=== PATIENT | female | born 1980 | race Caucasian/White ===

== ENCOUNTER 2020-01-18 11:33 | Emergency (ER) | payer BC, OTHER, SELFPAY ==
--- NOTE | ~2020-01-18 | US_ITS ---
EXAMINATION: US venous doppler LE RT DATE: 01/18/2020 12:46 INDICATION: Right lower limb pain. Palpable lump. TECHNIQUE: Grayscale ultrasound images without and with compression and Doppler ultrasound images of the right lower extremity veins were obtained. COMPARISON: None. FINDINGS: The visualized portions of right common femoral vein, profunda (deep) femoral vein, femoral vein, pop liteal vein, peroneal trunk, posterior tibial veins, peroneal veins, gastrocnemius vein and greater s aphenous vein outflow are patent. There is a 13 x 6 x 9 mm anechoic cystic fluid collection at the re gion of concern along the dorsal lateral aspect of the right foot. IMPRESSION: 1. No deep venous thrombosis in the right lower limb. 2. Couple abnormality corresponds to a 13 x 6 x 9 mm cystic fluid collection at the dorsolateral aspe ct of the right foot is likely representing a ganglion cyst. Differential would include hematoma/sero ma or abscess the appropriate clinical settings although the absence of any internal echogenicity wou ld be atypical for hematoma or abscess. Reviewed, dictated and finalized at location A. IMPRESSION: 1. No deep venous thrombosis in the right lower limb. 2. Couple abnormality corresponds to a 13 x 6 x 9 mm cystic fluid collection at the dorsolateral aspect of the right foot is likely representing a ganglion cy st. Differential would include hematoma/seroma or abscess the appropriate clini jenn settings although the absence of any internal echogenicity would be atypica l for hematoma or abscess.
--- NOTE | ~2020-01-18 | XR_ITS ---
EXAMINATION: XR foot RT min 3V DATE: 01/18/2020 12:06 INDICATION: Nontraumatic right foot pain and soft tissue swelling at the fourth and fifth metatarsals TECHNIQUE: Dorsoplantar, two oblique and lateral views of the right foot were obtained. COMPARISON: None. FINDINGS: Alignment is normal. There is subtle central linear lucency projecting across a region of sclerosis a t the proximal metadiaphyseal region of the right fifth metatarsal suspicious for stress reaction/inc omplete stress fracture. Alternatively this could represent an old healed fracture. No evident cortic al discontinuity. No other acute fractures identified. Lag screw fixation across the medial malleolus . Joint spaces are normal. Soft tissues are unremarkable. IMPRESSION: 1. Suggestion of possible stress injury/incomplete stress fracture at the proximal metadiaphyseal reg ion of the fifth metatarsal. Correlate with clinical history as a healed fracture at this location co uld appear similarly. Reviewed, dictated and finalized at location A. IMPRESSION: 1. Suggestion of possible stress injury/incomplete stress fracture at the proxi mal metadiaphyseal region of the fifth metatarsal. Correlate with clinical hist ory as a healed fracture at this location could appear similarly.
[2020-01-18 11:40] VITALS: BP 130/88; PULSE 86; RESP 18; TEMP 37.1; O2SAT 99
--- NOTE | 2020-01-18 12:09 | PC.NURSE ---
Pt states she has hx of broken R ankle bilaterally. Pt states they placed screws and plates. Pt states yesterday she was more active than normal and had pain and swelling. Pt states she elevated her R foot and the pain has decreased significantly. Pt states the lump on the R foot is not normally there. Pulses present, no reddness, or swelling noted.
--- NOTE | 2020-01-18 13:38 | ED.LOWEXIN ---
HPI - Extremity Injury (Lower) General Chief Complaint: Extremity Injury, Lower Stated Complaint: Think I have a blood clot Time Seen by Provider: 01/18/20 11:42 Source: RN notes reviewed History of Present Illness HPI Narrative: Patient presents emergency department from home for right foot pain. Patient states symptoms began 3 days ago. She notes that she noted a painful lump on her dorsal right lateral foot. She states that time her veins seem engorged as well. States since that time she is had pain in that foot she denies any pain further up the leg. Denies any known trauma or injury denies any fevers or chills numbness or tingling in extremities or any other symptoms at this time. Patient states she does have a history of previous ankle fracture in that foot with screw present Related Data Allergies Allergy/AdvReac Type Severity Reaction Status Date / Time No Known Allergies Allergy Verified 11/18/18 16:07 Review of Systems Review of Systems: Narrative: Gen.: Denies fevers or chills Musculoskeletal: See HPI Neuro: Denies numbness, tingling, weakness Skin: Denies rash Endo: Denies DM PMFSH Past Medical History Medical History (Updated 01/18/20 @ 13:39 by Pietro Felix DO) Patient denies significant medical history Family History Family History (Updated 06/17/15 @ 09:23 by DOCTOR UNKNOWN) Mother Family history of mental disorder Family history of spherocytosis Family history of lung cancer Father Depression Grandparent Diabetes mellitus Social History Social History Smoking status: Smoker, status unknown Alcohol intake: never Gender identity (if verbalized by the patient): Female Exam Narrative: Exam Narrative: APPEARANCE: No acute distress, nontoxic, resting in bed Eyes: EOMI HEENT: Normocephalic, atraumatic, RESPIRATORY: No respiratory distress MUSCULOSKELETAl: Tender to palpation at the base of the fifth metatarsal as well as mild tenderness over dorsal lateral foot with mild area of swelling present no overlying erythema or ecchymosis, no tenderness of the ankle is full range of motion of the ankle without pain no calf tenderness or proximal fibula tenderness, dorsalis pedis pulse 2+, neurovascular intact NEURO: Awake and alert. Following commands, speech normal, no focal deficits SKIN:: Warm, dry. Normal Color no rash or lesions Course Course Emergency Course: Discussed with patient results of workup and diagnosis. Discussed need for follow-up with primary care, proper use of medication, and reasons to return to the emergency department. Patient understands and agrees to current treatment plan Vital Signs Vital signs: Vital Signs Temperature 98.8 F 01/18/20 11:40 Pulse Rate 86 01/18/20 11:40 Respiratory Rate 18 01/18/20 11:40 Blood Pressure 130/88 01/18/20 11:40 Pulse Oximetry 99 01/18/20 11:40 Temperature 98.8 F 01/18/20 11:40 Pulse Rate 86 01/18/20 11:40 Respiratory Rate 18 01/18/20 11:40 Blood Pressure 130/88 01/18/20 11:40 Pulse Oximetry 99 01/18/20 11:40 MDM - Extremity Injury (Lower) Imaging Data Radiologist's impression: ITS Impressions Foot X-Ray 01/18/20 12:23 IMPRESSION: 1. Suggestion of possible stress injury/incomplete stress fracture at the proximal metadiaphyseal region of the fifth metatarsal. Correlate with clinical history as a healed fracture at this location could appear similarly. Venous Doppler Study 01/18/20 12:47 IMPRESSION: 1. No deep venous thrombosis in the right lower limb. 2. Couple abnormality corresponds to a 13 x 6 x 9 mm cystic fluid collection at the dorsolateral aspect of the right foot is likely representing a ganglion cyst. Differential would include hematoma/seroma or abscess the appropriate clinical settings although the absence of any internal echogenicity would be atypical for hematoma or abscess. Discharge Plan
== END 2020-01-18 14:02 | disposition home or self-care (01) ==
PROVIDERS: Emergency Provider Emergency Medicine
DX: S92.354A Nondisplaced fracture of fifth metatarsal bone, right foot, initial encounter for closed fracture (principal); X58.XXXA Exposure to other specified factors, initial encounter
CPT/HCPCS: 73630; 93971; 99284

== ENCOUNTER 2023-01-29 15:01 | Emergency (ER) | payer OTHER, BC, SELFPAY ==
[2023-01-29 15:02] VITALS: BP 141/86; PULSE 86; RESP 16; TEMP 36.4; O2SAT 97
--- NOTE | 2023-01-29 15:57 | ED.EAR ---
HPI - Ear Problem General Chief complaint: Ear Stated complaint: ear/head pain Time Seen by Provider: 01/29/23 15:24 Source: patient, RN notes reviewed and old records reviewed Mode of arrival: ambulatory Limitations: no limitations History of Present Illness HPI Narrative: This is a 42 year old female with history of spherocytosis s/p splenectomy who presents for evaluation right ear pain. Patient has been having right side facial pain and right ear pain for 2 weeks. She reports she cleaned out her ears with Q tip a few days ago , and she saw old dark substance on the q tip. She placed her used q tip in a plastic baggy and put away on the counter. She has noticed that those q tip are growing black substance. She is concerned for fungal ear infection. She denies nausea, vomiting, vertigo, fever, chills, blurred vision, focal weakness. She states Dr. Romero is unable to get her in for 2 weeks. Related Data Home Medications Medication Instructions Recorded Confirmed cholecalciferol (vitamin D3) 250 250 mcg PO DAILY 10/20/22 10/20/22 mcg (10,000 unit) capsule Allergies Allergy/AdvReac Type Severity Reaction Status Date / Time No Known Allergies Allergy Verified 01/29/23 15:11 Review of Systems Constitutional: Constitutional: Denies weakness Cardiovascular: Cardiovascular: Denies syncope, Denies rapid heart rate, Denies irregular heart rhythm, Denies leg edema and Denies dyspnea Respiratory: Respiratory: Denies chest congestion, Denies hemoptysis, Denies excessive phlegm production and Denies dyspnea Gastrointestinal: Gastrointestinal: Denies abdominal pain, Denies hematochezia, Denies diarrhea and Denies vomiting Genitourinary: Genitourinary: Denies hematuria and Denies dysuria Musculoskeletal: Musculoskeletal: Denies joint swelling, Denies loss of height and Denies muscle weakness Neurologic: Denies syncope, Denies focal weakness and Denies weakness PMFSH Past Medical History Medical History Depression Ganglion cyst of right foot Osteopenia Patient denies significant medical history Spherocytosis Weight gain Surgical History Surgical History History of ankle surgery Right ankle, 2002 History of splenectomy Family History Family History Mother Family history of mental disorder Family history of spherocytosis Family history of lung cancer Father Depression Grandparent Diabetes mellitus Other Arthritis Social History Social History Smoking packs per day: 1 Smoking cigarettes per day: 20.0 Years smoked: 15 Smoking pack-years: 15.00 Smoking status: Current every day smoker Tobacco type: e-cigarettes/vaping Alcohol intake: never Alcohol use details: Occasional Substance use: unknown Lack of Transportation: No Lack of Food: Never True Current Housing: I Have Housing Concerned About Future Housing: No Difficulty Paying Gas/Electric Bills: No Difficulty Paying for Meds: No Currently Unemployed: No Education: Bachelor's Degree Difficulty w/ Childcare or Family Care: No Occupation/Education: unemployed Gender identity (if verbalized by the patient): Female Exam Const: General: no acute distress and alert Nutritional Appearance: well nourished Orientation/consciousness: patient oriented x3 HENMT: Head: normal to inspection Ears: TM's normal bilaterally, Abnormal EAC present other (right canal with brown substance, no canal swelling or erythema) and other (mild right mastoid tenderness, no redness, no bogginess; no pain with ear m) Face/Nose/Sinus: Normal external nose present Face and sinus: normal facial exam and sinuses nontender Mouth: Yes Normal oral and palatal mucosa present, Yes lip normal and Yes moist mucous membranes
[2023-01-29 16:01] LABS: Basophils Absolute Auto 0.1 K/mm3 (0.0-0.1); Basophils Percent Auto 0.6 % (0.2-1.2); Eosinophils Absolute Auto 0.1 K/mm3 (0-0.3); Eosinophils Percent Auto 1.1 % (0-4.4); Hematocrit 40.4 % (37.0-47.0); Hemoglobin 14.2 g/dL (12.0-15.0); Immature Granulocyte Absolute 0.05 K/mm3 (0.00-0.031); Immature Granulocyte Percent A 0.4 % (0-0.5); Lymphocytes Absolute Auto 3.38 K/mm3 (0.9-3.2); Lymphocytes Percent Auto 27.8 % (18.3-44.2); Mean Corpuscular HGB Conc 35.1 g/dl (32-36); Mean Corpuscular Volume 88.2 fl (80-100); Mean Platelet Volume 8.6 fl (7.4-10.4); Monocytes Absolute Auto 1.1 K/mm3 (0.1-0.6); Monocytes Percent Auto 8.7 % (2.6-8.5); Neutrophils Absolute Auto 7.5 K/mm3 (1.3-6.7); Neutrophils Percent Auto 61.4 % (45.5-73.1); Platelet Count Result 594 k/mm3 (150-375); Red Blood Count 4.58 M/mm3 (4.2-5.4); White Blood Count 12.1 K/mm3 (4.5-10.0)
[2023-01-29 16:13] LABS: Alanine Aminotransferase 23 U/L (6-35); Albumin Level 4.1 g/dL (3.5-5.1); Alkaline Phosphatase 59 U/L (38-126); Anion Gap 6 mmol/L (8-16); Aspartate Amino Transferase 25 U/L (14-36); Bilirubin,Total 0.6 mg/dL (0.2-1.3); Blood Urea Nitrogen 14 mg/dL (7-17); CRP < 0.5 mg/dL (<1.0); Calcium 8.5 mg/dL (8.4-10.2); Carbon Dioxide 28 mmol/L (22-30); Chloride 105 mmol/L (98-107); Estimated CRCL calculation 114 ml/min; Estimated Glomerular Filt Rate > 60; Glucose 107 mg/dL (65-110); Potassium 3.8 mmol/L (3.4-5.0); Sodium 139 mmol/L (137-145)
[2023-01-29 16:56] VITALS: BP 132/81; PULSE 70; O2SAT 97
== END 2023-01-29 16:57 | disposition home or self-care (01) ==
PROVIDERS: Emergency Provider General Practice; PCP Nurse Practitioner
DX: H60.91 Unspecified otitis externa, right ear (principal); F17.290 Nicotine dependence, other tobacco product, uncomplicated
CPT/HCPCS: 36415; 80053; 85025; 86140; 99283

== ENCOUNTER 2023-02-10 06:35 | Outpatient (CLI) | payer OTHER, BC, SELFPAY ==
--- NOTE | ~2023-02-10 | CT_ITS ---
EXAMINATION: CT sinus wo con DATE: 02/10/2023 06:57 INDICATION: Acute recurrent maxillary sinusitis TECHNIQUE: Computed tomography (CT) of the paranasal sinuses was performed without intravenous contra st. The dose-length product was 218.94 mGy-cm. Automated exposure control and iterative reconstructio n technique were employed. COMPARISON: None FINDINGS: There is mild mucosal thickening of the left maxillary sinus. Rightward nasal septal deviat ion. Ostiomeatal units are patent. No air-fluid levels. No mucoperiosteal reaction. IMPRESSION: 1. Mild left maxillary sinus disease. Reviewed, dictated and finalized at location L.
== END 2023-02-10 06:36 | disposition home or self-care (01) ==
PROVIDERS: PCP Nurse Practitioner; Visit Provider Otolaryngology
DX: J01.01 Acute recurrent maxillary sinusitis (principal); B36.9 Superficial mycosis, unspecified; H62.41 Otitis externa in other diseases classified elsewhere, right ear
CPT/HCPCS: 70486

== ENCOUNTER 2023-11-14 10:54 | Emergency (ER) | payer OTHER, SELFPAY ==
[2023-11-14 10:56] VITALS: BP 145/66; PULSE 74; RESP 18; TEMP 36.4; O2SAT 100
--- NOTE | 2023-11-14 13:35 | ED.SKABFB ---
HPI - Skin/Abscess/Foreign Bdy General Chief complaint: Skin/Abscess/Foreign Body Stated complaint: cyst under arm Time Seen by Provider: 11/14/23 12:46 History of Present Illness HPI narrative: 43-year-old female presenting with a cyst under her left arm. States that it has been red and painful for the last 2-3 days. Concerned for infection. Denies any drainage. Denies any lesions elsewhere. No fevers or chills. No further complaints. Related Data Home Medications Medication Instructions Recorded Confirmed fluoxetine 20 mg capsule (Prozac) 20 mg PO DAILY 02/08/23 Allergies Allergy/AdvReac Type Severity Reaction Status Date / Time No Known Allergies Allergy Verified 11/14/23 12:33 Review of Systems Review of Systems: All systems reviewed & are unremarkable except as noted in HPI and below PMFSH Past Medical History Medical History Depression Ganglion cyst of right foot Osteopenia Patient denies significant medical history Spherocytosis Weight gain Surgical History Surgical History History of ankle surgery Right ankle, 2002 History of splenectomy Family History Family History Mother Family history of mental disorder Family history of spherocytosis Family history of lung cancer Father Depression Grandparent Diabetes mellitus Other Arthritis Social History Social History Smoking packs per day: 1 Smoking cigarettes per day: 20.0 Years smoked: 15 Smoking pack-years: 15.00 Smoking status: Current every day smoker Tobacco type: e-cigarettes/vaping Alcohol intake: never Alcohol use details: Occasional Substance use: unknown Lack of Transportation: No Lack of Food: Never True Current Housing: I Have Housing Concerned About Future Housing: No Difficulty Paying Gas/Electric Bills: No Difficulty Paying for Meds: No Currently Unemployed: No Education: Bachelor's Degree Difficulty w/ Childcare or Family Care: No Occupation/Education: unemployed Gender identity (if verbalized by the patient): Female Exam Narrative: GENERAL: Nontoxic, no acute distress, pleasant cooperative HEAD: Normocephalic, atraumatic. EYES: PERRLA and EOMI. ENT: Grossly unremarkable NECK: Supple. CHEST: No respiratory distress. EXTREMITIES: Normal range of motion. No edema. SKIN: 2x2cm abscess L axilla with surrounding cellulitis NEURO: No focal deficits. Alert and oriented x3. PSYCH: Normal mood and affect. Course Vital Signs Vital signs: Vital Signs Temperature 97.6 F 11/14/23 10:56 Pulse Rate 74 11/14/23 10:56 Respiratory Rate 18 11/14/23 10:56 Blood Pressure 145/66 H 11/14/23 10:56 Pulse Oximetry 100 11/14/23 10:56 Temperature 98.4 F 11/14/23 14:35 Pulse Rate 70 11/14/23 14:35 Respiratory Rate 20 11/14/23 14:35 Blood Pressure 140/74 11/14/23 14:35 Pulse Oximetry 100 11/14/23 14:35 Procedures Abscess I/D upper extremity: Date of Incision: 11/14/23 Time of Incision: 14:19 Side (if applicable): left Local Anesthetic: lidocaine 1% and with epi Technique: incised with #11 blade Amount of fluid expressed (mL): 5 Irrigation: Yes Packing used?: none I&D Results: Pus and Blood MDM - Skin/Abscess/Foreign Bdy MDM Narrative Medical decision making narrative: 43-year-old female presenting with an abscess in her left axilla. Vitals stable. Exam remarkable for the above. Abscess drained at bedside, please see procedure note for further detail. Will start her on Bactrim and Keflex for the surrounding cellulitis. Advised close PCP follow-up. Appropriate return precautions given. Patient is agreeable with this plan. Discharged in
[2023-11-14] MEDS: KETOROLAC 30 MG/ML VIAL (*BKC) IM (13:47)
[2023-11-14] MEDS: LIDO 1%/EPINEPHRINE 1:100,000 20 ML VIAL 10 ML INFILTRATE (13:47)
[2023-11-14 14:35] VITALS: BP 140/74; PULSE 70; RESP 20; TEMP 36.9; O2SAT 100
== END 2023-11-14 14:36 | disposition home or self-care (01) ==
PROVIDERS: Emergency Provider Emergency Medicine; PCP Nurse Practitioner
DX: L02.412 Cutaneous abscess of left axilla (principal); L03.112 Cellulitis of left axilla; F32.A Depression, unspecified; M85.80 Other specified disorders of bone density and structure, unspecified site; F17.210 Nicotine dependence, cigarettes, uncomplicated; Z90.81 Acquired absence of spleen
CPT/HCPCS: 10060; 96372; 99283; J1885

== ENCOUNTER 2024-12-20 08:52 | Emergency (ER) | payer BC, SELFPAY ==
[2024-12-20 09:02] VITALS: BP 117/62; PULSE 74; RESP 20; TEMP 37.1; O2SAT 99
--- OUTSIDE RECORDS SUMMARY | 2024-12-20 09:23 | XMS_ITS | Encounter Summary ---
Author Organization [facility] Address [address] [place] [address] Care Team Providers Care Vocational Placement Specialist Name Role Phone Celestina Duncan APRN-POLICE RESERVES COMMANDER Primary Care Provider Unknown, Provider Primary Care Provider Unavaila ble Reason for Visit * Reason Onset Date Comments Imm Inj 05/10/2019 Encounter Details Date Type Department Care Team (Late st Contact Info) Description 05/10/2019 Telephone [facility] [address] [facility] [address] [place] [address] Celestina Duncan, AIRCRAFT MAINTENANCE SUPERVISOR-POLICE RESERVES COMMANDER [address] OF [facility] [place] [address] Imm Inj Social History Tobacco Use Types Packs/Day Years Used Date Smoking Tobacco: Every Day Cigarettes 1 27.3 Started: 1997 Smokeless Tobacco: Never Comments:smokes 5-6 cigarett es a day Alcohol Use Standard Drinks/Week Comments No 0 (1 standard drink = 0.6 oz pur e alcohol) Comments No Sex and Gender Information Value Date Recorded Sex Assigned at Not on file Legal Sex Female 3:26 PM CDT Gender Identity Not on file Sexual Orientation Not on file documented as of this encounter Miscellaneous Notes * Telephone Encounter - Breonna Washington MD - 05/11/2019 8:52 AM CDT OK to schedule nurse only for TdaP * Telephone Encounter - Selina Lagos RN - 05/10/2019 3:37 PM CDT Patient needs order for tdap documented in this encounter Plan of Treatment Not on file documented as of this encounter Visit Diagnoses Not on filedocumented in this encounter Care Teams Vocational Placement Specialist Relationship Specialty Start Date End Date Celestina Duncan, AIRCRAFT MAINTENANCE SUPERVISOR-POLICE RESERVES COMMANDER [address] [place] [address] PCP - General 05/16/18 06/14/24 Unknown, Provider PCP - General 06/15/24 documented as of this encounter
--- OUTSIDE RECORDS SUMMARY | 2024-12-20 09:23 | XMS_ITS | Encounter Summary ---
Author Organization [facility] Address [address] [place] [address] Care Team Providers Care Manager Of Project Management Name Role Phone Celestina Duncan APRN-PHARMACY MESSENGER Primary Care Provider Unknown, Provider Primary Care Provider Unavaila ble Reason for Visit * Reason Onset Date Comments MEDICATION REFILL 05/09/2019 Encounter Details Date Type Department Care Team (Late st Contact Info) Description 05/09/2019 Refill [facility] - [facility] [address] [facility] [place], [place] [id number] eLnnie Mcfarlane MD [address] [place] [id number] MEDICATION REFILL Social History Tobacco Use Types Packs/Day Years [...] encounter Miscellaneous Notes * Telephone Encounter - Janet Weston - 05/10/2019 9:03 AM CDT Patient requesting refills for the following ( Tramadol 50 mg ) medications. DANIEL:11-09-18 NOV: not scheduled at this time RTC In 8 months Problem List Identified: office visit on 11-09-18 chronic back pain Medication attached per refill protocol/guidlines for further review by provider yes PCP / Resident PCP verified yes Allergies Reviewed yes Pharmacy Reviewed yes Medication details entered yes Office visit within the last six months yes if not within last 6 months route to GIM-scheduling as well. Office visit greater than 12 months no routed to GIM scheduling ONLY no. ROUTED to scheduling to assist with scheduling follow-up per [facility] RTC in 8 months documented in this encounter Plan of Treatment Not on file documented as of this encounter Visit Diagnoses Diagnosis Chronic bilateral thoracic back pain Chronic bilateral low back pain, with sciatica presence unspecified documented in this encounter Care Teams Manager Of Project Management Relationship Specialty Start Date End Date Celestina Duncan, HOP FARM WORKER-PHARMACY MESSENGER [address] [place] [address] PCP - General 05/16/18 06/14/24 Unknown, Provider PCP - General 06/15/24 documented as of this encounter
--- OUTSIDE RECORDS SUMMARY | 2024-12-20 09:23 | XMS_ITS | Encounter Summary ---
Author Organization [facility] Address [address] [place] [address] Care Team Providers Care Cafe Worker Name Role Phone Celestina Duncan Primary Care Provider Unknown, Provider Primary Care Provider Unavaila ble Reason for Visit * Reason Onset Date Comments General 08/02/2018 Encounter Details Date Type Department Care Team (Late st Contact Info) Description 08/02/2018 Telephone [facility] [address] [facility] [address] [place] [address] Celestina Duncan APRN-CNP [address] OF [facility] [place] [address] General Social History Tobacco Use Types Packs/Day Years Used Date Smoking Tobacco: Every Day Cigarettes 1 27.3 Started: 1997 Smokeless Tobacco: Current Comments:vaping Alcohol Use Standard Drinks/Week Comments No 0 (1 standard drink = 0.6 oz pur e alcohol) Comments No Sex and Gender Information Value Date Recorded Sex Assigned at Not on file Legal Sex Female 3:26 PM CDT Gender Identity Not on file Sexual Orientation Not on file documented as of this encounter Miscellaneous Notes * Telephone Encounter - Celestina Cuellar APRN-CNP - 08/02/2018 11:34 AM PROGRAMS MANAGER Please fax labs from 07/31/2018 and call patient. Thank you, ESSENCE Sánchez RAMS MANAGER * Telephone Encounter - Su Caraballo - 08/02/2018 8:30 AM CST PT:MITA HOLT Contact #: [phone] Pt called and stated she needs Orders sent over to [facility] blood work [address] [place] [id number] Please call pt at the number above once the orders are sent over. DANIEL;07/31/18 NOV:01/29/19 RAMS MANAGER documented in this encounter Plan of Treatment Not on file documented as of this encounter Visit Diagnoses Not on filedocumented in this encounter Care Teams Cafe Worker Relationship Specialty Start Date End Date Celestina Duncan APRN-CNP [address] [place] [address] PCP - General 05/16/18 06/14/24 Unknown, Provider PCP - General 06/15/24 documented as of this encounter
--- OUTSIDE RECORDS SUMMARY | 2024-12-20 09:23 | XMS_ITS | CONTINUITY OF CARE DOCUMENT ---
Author Name camille obrien Address Unknown Organization [facility] Address [id number] [place] [address] [address] [place] [address] Phone [phone] Care Team Providers Care Home Connect Lpn Name Role Phone mireyacamille chou Unavailable Unavailable INSURANCE PROVIDERS Payer name Policy type / Coverage type Secor red republican ID [employer] [id number]
--- OUTSIDE RECORDS SUMMARY | 2024-12-20 09:23 | XMS_ITS | Continuity of Care Document ---
Author Organization [facility] Address [address] [place] [address] [place] [address] [place] [address] Phone Care Team Providers Care Professor Of Communication And Writing Name Role Phone Dudley Yeung MD Unavailable Unavailable Allergies, Adverse Reactions, Alerts Substance Reaction Status Criticality No Known Allergies Active No Inform ation Medications Medication Instructions Dosage Effective Dates (start - stop) Status Comments Ultram 50 mg tablet take 1 tablet by oral route every 6 hours as needed as needed - Active PRN for pain, avoid driving or operate machines, cyclobenzaprine 5 mg tablet take 1 tablet by oral route every bedtime as needed 5 MG - Active PRN for pain, avoid driving or operate machines Procedures Procedure Date PREV VISIT, EST, AGE 18-39 OFFICE/OUTPATIENT VISIT, EST OFFICE/OUTPATIENT VISIT, EST OFFICE/OUTPATIENT VISIT, EST OFFICE/OUTPATIENT VISIT, EST OFFICE/OUTPATIENT VISIT, EST OFFICE/OUTPATIENT VISIT, EST OFFICE/OUTPATIENT VISIT, EST OFFICE/OUTPATIENT VISIT, EST OFFICE/OUTPATIENT VISIT, EST OFFICE/OUTPATIENT VISIT, EST OFFICE/OUTPATIENT VISIT, EST PREV VISIT, EST, AGE 18-39 OFFICE/OUTPATIENT VISIT, EST OFFICE/OUTPATIENT VISIT, EST OFFICE/OUTPATIENT VISIT, EST OFFICE/OUTPATIENT VISIT, EST PREV VISIT, EST, AGE 18-39 OFFICE/OUTPATIENT VISIT, EST Advance Directives Directive Yes / No Effective Date File Name No Information Encounters Encounter Description Practice Location Reason(s) For Visit Diagnoses Date Provider Providers Copied on Encounter [facility], [address], [place], [place], [address], tel:[phone] [facility] No Information 8 Gamal Buckner. [address], [place], [place], [address] , [place]. tel:[phone] Referring Provider: Chuck David [address], [place], [place], [address]. tel:[phone] PREV VISIT, EST, AGE 18-39 [facility], [address], [place], [place], [address], [place] tel:[phone] [facility] PHysical (chief complaint) Encounter for general adult medical exam w abnormal findingsHyperlipid emiaLiver diseaseChronic pain syndrome 8 Gamal Buckner. [address], [place], [place], [address] , [place]. tel:[phone] Referring Provider: Chuck [address], [place], [place], [address]. tel:[phone] OFFICE/OUTPA TIENT VISIT, [facility], [address], [place], [place], [address], [place] tel:[phone] [facility] back pain1 (chief complaint)t obacco1 (chief complaint)e ar pain1 (chief complaint)L iver disease1 (chief complaint) Other hyperlipidemiaOtal david, right earLiver diseaseOther spondylosis, cervicothoracic region 5 Gamal Buckner. [address], [place], [place], [address] , [place]. tel:[phone] Referring Provider: Chuck [address], [place], [place], [address]. tel:[phone] OFFICE/OUTPA TIENT VISIT, [facility], [address], [place], [place], [address], [place] tel:[phone] [facility] back pain (chief complaint)H TN (chief complaint)t obacco (chief complaint) Dietary surveillance and counselingBack painOpioid type dependence, unspecified useUnspecified essential hypertensionTobacc o abuse 5 Gamal Buckner. [address], [place], [place], [address] , [place]. tel:[phone] Referring Provider: Dudley Yeung, [address], [place], [place], [address]. tel:[phone] OFFICE/OUTPA TIENT VISIT, [facility], [address], [place], [place], [address], [place] tel:[phone] [facility] back pain (chief complaint) Dietary surveillance and counselingBack painUnspecified essential hypertensionUnspec ified chronic liver disease without mention of alcohol 5 Gamal Buckner. [address], [place], [place], [address] , [place]. tel:[phone] Referring Provider: Chuck David [address], [place], [place], [address]. tel:[phone] OFFICE/OUTPA TIENT VISIT, [facility], [address], [place], [place], [address], [place] tel:[phone] [facility] URI (chief complaint)b ack pain (chief complaint) Dietary surveillance and counselingAllergic rhinitisUpper respiratory diseaseLumbago 5 Gamal Buckner. [address], [place], [place], [address] , [place]. tel:[phone] Referring Provider: Chuck David [address], [place], [place], [address]. tel:[phone] OFFICE/OUTPA TIENT VISIT, [facility], [address], [place], [place], [address], [place] tel:[phone] [facility] LFT (chief complaint)H LP (chief complaint)b ack pain (chief complaint)H TN (chief complaint) Dietary surveillance and counselingHyperten geronimo, UnspecifiedOther and unspecified hyperlipidemiaUnsp ecified chronic liver disease without mention of alcoholLumbago Nov- 5 Gamal Mckeon [address], [place], [place], [address] , . tel:[phone] Referring Provider: [facility] [place], [place], [address]. tel:[phone] OFFICE/OUTPA TIENT VISIT, [facility], [address], [place], [place], [address], [place] tel:[phone] [facility] back pain (chief complaint)d epression (chief complaint) LumbagoDietary surveillance and counselingDepressi onOpioid type dependence, unspecified use 5 Gamal Mckeon [address], [place], [place], [address] , [place]. tel:[phone] Referring Provider: Chuck David [address], [place], [place], [address]. tel:[phone] OFFICE/OUTPA TIENT VISIT, [facility], [address] [place], [address], [place] tel:[phone] [facility] depression (chief complaint)b ack pain (chief complaint)L FT (chief complaint) DepressionLumbagoU nspecified chronic liver disease without mention of alcoholDietary surveillance and counseling 4 Gamal Mckeon [address], [place], [place], [address] , [place]. tel:[phone] Referring Provider: Chuck David [address], [place], [place], [address]. tel:[phone] OFFICE/OUTPA TIENT VISIT, [facility], [address], [place], [place], [address], [place] tel:[phone] [facility] HLP (chief complaint)L FT (chief complaint)b ack pain (chief complaint)d epression (chief complaint) ObesityOther and unspecified hyperlipidemiaUnsp ecified chronic liver disease without mention of alcoholLumbago 4 Gamal Buckner. [address], [place], [place], [address] , [place]. tel:[phone] Referring Provider: Chuck David [address], [place], [place], [address]. tel:[phone] OFFICE/OUTPA TIENT VISIT, EST [facility], [address], [place], [place], [address], [place] tel:[phone] [facility] Medicine LFT (chief complaint)H LP (chief complaint)b ack pain (chief complaint)a drenal nodule (chief complaint) Other and unspecified hyperlipidemiaUnsp ecified chronic liver disease without mention of alcoholObesityLumb ago 4 Gamal Mckeon [address], [place], [place], [address] , [place]. tel:[phone] Referring Provider: Chuck David [address], [place], [place], [address]. tel:[phone] OFFICE/OUTPA TIENT VISIT, EST [facility], [address], [place], [place], [address], [place] tel:[phone] [facility] adrenal nodule (chief complaint)a cne (chief complaint)b ack pain (chief complaint) Dietary surveillance and counselingOther specified disorders of adrenal glandsLumbagoOther acne 4 Gamal Mckeon [address], [place], [place], [address] , [place]. tel:[phone] Referring Provider: Chuck David [address], [place], [place], [address]. tel:[phone] PREV VISIT, EST, AGE 18-39 [facility], [address], [place], [place], [address], [place] tel:[phone] [facility] Medicine Physical (chief complaint) Dietary surveillance and counselingRoutine Medical ExamRoutine Medical Exam 4 Yeung Dudley. [address], [place], [place], [address] , [place]. tel:[phone] Referring Provider: Chuck David [address], [place], [place], [address]. tel:[phone] OFFICE/OUTPA TIENT VISIT, [facility], [address], [place], [place], [address], [place] tel:[phone] [facility] back pain (chief complaint)a dernal mass (chief complaint) LumbagoOther specified disorders of adrenal glands 4 Gamal Buckner. [address], [place], [place], [address] , [place]. tel:[phone] Referring Provider: Chuck David [address], [place], [place], [address]. tel:[phone] OFFICE/OUTPA TIENT VISIT, [facility], [address], [place], [place], [address], [place] tel:[phone] [facility] back pain (chief complaint) LumbagoDietary surveillance and counseling 3 Gamal Buckner. [address], [place], [place], [address] , [place]. tel:[phone] Referring Provider: Chuck David [address], [place], [place], [address]. tel:[phone] OFFICE/OUTPA TIENT VISIT, [facility], [address], [place], [place], [address], [place] tel:[phone] [facility] back pain (chief complaint)a drenal (chief complaint) Dietary surveillance and counselingLumbagoH ypertension, UnspecifiedOther specified disorders of adrenal glands 3 Gamal Buckner. [address], [place], [place], [address] , [place]. tel:[phone] Referring Provider: Chuck David [address], [place], [place], [address]. tel:[phone] OFFICE/OUTPA TIENT VISIT, EST [facility], [address], [place], [place], [address], [place] tel:[phone] [facility] Medicine back pain (chief complaint)H TN (chief complaint)H LP (chief complaint) Dietary surveillance and counselingLumbagoH ypertension, UnspecifiedOther and unspecified hyperlipidemia 3 Gamal Buckner. [address], [place], [place], [address] , [place]. [phone] Referring Provider: [facility] [place], [place], [address]. tel:[phone] PREV VISIT, EST, AGE 18-39 [facility], [address], [place], [place], [address], [place] tel:[phone] [facility] Physical (chief complaint) Routine Medical ExamHypertension, UnspecifiedLumbago Major depressive affective disorder, single episode, mild degreeRoutine Medical Exam 0 3 Gamal Buckner. [address], [place], [place], [address] , [place]. [phone] Referring Provider: Chuck David [email or web address]] A, [place], [place], [address]. tel:[phone] Family History Family Member Type Diagnosis Age At Onset Father Problem (finding) Alcoholism Sister Problem (finding) MVA Mother Problem (finding) Cancer - lung [place] Payers Payer name Insurance type Covered green party ID Authoriza tion(s) No Information Social History Type Description Quantity Date Captured Comments Alcohol Use Details Unknown Caffeine Use Details Unknown Tobacco Use Status Smoking Status No Information Sex Female Chief Complaint And Reason For Visit No Information Plan Of Treatment Date Type Action Status Goal Depression screening. Due on due Goal Td vaccine. Due on 20 due Goal Influenza vaccine. Due on Oc due Goal Pap/HPV testing. Due on due Goal Tdap. Due on due Goal Influenza vaccine. Due on Oc due Goal Td vaccine. Due on 20 due Goal Depression screening. Due on due Goal Tdap. Due on due Goal Pap/HPV testing. Due on due Goal Special diet education compl eted Goal Depression screening. Due on due Goal Td vaccine. Due on 15 due Goal Pap/HPV testing. Due on due Goal Tdap. Due on due Goal Depression screening. Due on due Goal Td vaccine. Due on 15 due Goal Tdap. Due on due Goal Pap/HPV testing. Due on due Goal Tdap. Due on due Goal Pap/HPV testing. Due on due Goal Td vaccine. Due on 15 due Goal Depression screening. Due on due Goal Depression screening. Due on due Goal Pap/HPV testing. Due on due Goal Td vaccine. Due on 15 due Goal Tdap. Due on due Goal Special diet education compl eted Goal Tobacco cessation counseling completed Goal Tobacco cessation counseling completed Goal Tobacco cessation counseling completed Goal Tobacco cessation counseling completed Goal Tobacco cessation counseling completed Goal Tobacco cessation counseling completed Goal Tobacco cessation counseling completed Referral Ordered: Physical Therapy (related to Chronic pain syndrome) ordered Referral Ordered: Pain Medicine (related to Chronic pain syndrome) ordered Referral Ordered: Referrals: Pain Medicine. Evaluate and treat ordered Referral Referred To: Physical Therapy Ordered: Referrals: Physical Therapy. Evaluate and treat ordered Referral Ordered: MRI THORACIC SPINE W/O DYE ordered Referral Ordered: US EXAM, ABDOM, COMPLETE ordered Referral Ordered: Referral: Dermatology. Evaluate and treat. ordered Referral Ordered: Referral: Pain Management. ordered Referral Ordered: MRI ABDOMEN W/O & W/DYE ordered Referral Ordered: Physical Therapy ordered Referral Ordered: LUMBAR XRAY AP AND LAT ONLY ordered Referral Referred To: Physical Therapy Ordered: Referral: Physical Therapy. ordered History Of Present Illness Encounter Date Complaint History Of Prese nt Illness PHysical Pt needs annual physical. Pt has chronic and intermittent mid back pain. Pt seen pain management in the past and she had radiofrequency ablation along with pain injection which did help. Pt states that she has not had any pain for two years. Pt also notices some neck pain as well with some tension type of headache for 4 weeks Pt denies any injury. Pt feels pressure around posterior neck and radiating to rest of head with headache. Pt denies any head injury. Pt denies waking up at night with headache. Pt states that she has been having 5/10 pain almost daily. Pt has sharp midback pain. Pt has pressure headache from her neck area. Pt denies any other complaints. Pt states that she has headache 4/7 days. Pt tried OTC meds but not helping Pt denies any acute headache. back pain1 Pt has chronic m idback pain. Pt states that she is seeing pain managment but she wants to change pain managment again. Pt states that the pain meds do not help and she was prescrbied exercise program but she does not want that either. Pt wants shot tobacco1 Pt smoking about one pack per day now. Pt states that she patch did not help. Pt wants higher dose of patch. Pt denies any SOB. Pt smokes about one pack per day now. Ptis out of ear pain1 Pt c/o right ear pain on and off for several months. Pt denies any hearing loss. Pt denies any sore throat. Pt c/o mild sinus congestion. Pt denies any tinnitus. Pt denies any fever Liver disease1 Pt has mild elev ated lFT and HLP. Pt has not done lab yet. Pt is on low fat and low carb diet back pain Additional infor mation: Pt has chronic midback pain. Pt states that current dose of pain meds do not help anymore. Her MRI is not approved by insurance despite she failed PT and also pain injections. HTN Pt has mild HTN in office. Pt denies any chest pain or headache tobacco Pt smokes about 10 cig per day back pain Additional infor mation: Pt has chornic midback pain. Pt had some mild bulging disc from MRI 2012. Pt is getting shot. Pt states that the shot has not helped so much. URI Additional infor mation: Pt c/o recurrent URI recently. Pt c/o coughing and frequent chest congestion, sinus symptoms, white phleam, stuffy nose on and off for several months. Pt recently was diagnosed for atypical pneumonia Pt thinks that she has mold in the house. back pain Additional infor mation: Pt has chornic midback pain. pt is getting back injection from pain management but now working. Pt c/o persisent midback pain. Instructions Date Instruction Additional Infor mation Special diet education Related t o Body mass index (BMI) 31.0-31.9, adult Increase physical activity Relat ed to Encounter for general adult medical exam w abnormal findings Quit smoking Related to Encou nter for general adult medical exam w abnormal findings Weight management Related to Enc ounter for general adult medical exam w abnormal findings Prescribed Activity and Exercise Education Related to Dietary Surveillance and Counseling Prescribed Diet Educ ation/Lifestyle Education Regarding Diet Related to Dietary Surveillance and Counseling Prescribed Activity and Exercise Education Related to Dietary Surveillance and Counseling Prescribed Diet Educ ation/Lifestyle Education Regarding Diet Related to Dietary Surveillance and Counseling Prescribed Activity and Exercise Education Related to Dietary Surveillance and Counseling Prescribed Diet Educ ation/Lifestyle Education Regarding Diet Related to Dietary Surveillance and Counseling Prescribed activity/ exercise education Related to Dietary surveillance and counseling Special diet education Related t o Dietary surveillance and counseling Decrease caloric intake Related to Dietary surveillance counseling Physical activity counseling Rel ated to Dietary surveillance counseling Physical activity counseling Rel ated to Dietary surveillance counseling Decrease caloric intake Related to Dietary surveillance counseling Physical activity counseling Rel ated to Dietary surveillance counseling Decrease caloric intake Related to Dietary surveillance counseling Decrease caloric intake Related to Obesity unspecified, BMI 30-39 Dietary counseling Related to Ob esity unspecified, BMI 30-39 Decrease caloric intake Related to Obesity unspecified, BMI 30-39 Dietary counseling Related to Ob esity unspecified, BMI 30-39 Dietary counseling Related to Di etary surveillance counseling Decrease caloric intake Related to Dietary surveillance counseling Dietary counseling Related to Di etary surveillance counseling Decrease caloric intake Related to Dietary surveillance counseling Dietary counseling Related to Di etary surveillance counseling Decrease caloric intake Related to Dietary surveillance counseling Dietary counseling Related to Di etary surveillance counseling Decrease caloric intake Related to Dietary surveillance counseling Dietary counseling Related to Di etary surveillance counseling Decrease caloric intake Related to Dietary surveillance counseling Assessments Type Assessment Date No Information
--- OUTSIDE RECORDS SUMMARY | 2024-12-20 09:23 | XMS_ITS | Clinical Summary ---
Author Organization [facility] Address [address] [place] [address] Care Team Providers Care Metal Fabricating Shop Helper Name Role Phone Unknown, Provider Primary Care Provider Unavaila ble Source Comments [facility],non-owned Affiliates and Associated Physician Practices is amultiple site organization consisting of ambulatory clinics and hospital sitesin [place], [place], [place] and [place]. This disclosure is being madepursuant to the Care Everywhere program and may not contain all information available regarding this patient. Last updated 18.[facility] Allergies No known active allergies Medications * Be aware that medications may not be up to date on this document. Alwaysverify current medications with the patient. traMADol (ULTRAM) 50 MG tabletIndication s:Chronic bilateral thoracic back pain,Chronic bilateral low back pain, with sciatica presence unspecified Take 1/2 to 1 tab Q 8 PRN pain. 30 tablet 9 Active tretinoin (RETIN-A) 0.025 % gelIndications:A cne vulgaris Apply to affected area once daily 20 g 3 9 Active Active Problems Problem Noted Date Diagnosed Date Dysmenorrhea 11/09/2018 Hair loss 08/01/2018 Healthcare maintenance 07/31/2018 Overview (11/09/2018): Women's Routine Health Maintenance - BRCA/genetic counselling: NA - Breast cancer screening: NA - Cervical cancer screenin09/12/2018 - CRC screening: NA - Tobacco use: current smoker - Lung cancer screening: NA - Diabetes screening: ordered - Obesity/physical activity/diet counseling: discussed - Fall prevention: NA - Osteoporosis screening: requested records - Hep C: NA - Chlamydia: NA - Gonorrhea: NA - HIV: NA - Lipid screening: ordered - Statin: NA - ASA: NA - Depression screening: discussed - EtOH abuse screening (4 or more drinks in one day w/n the past year): 0 - Intimate partner violence (safe at home; Hurt, Insult, Threaten, Scream): denies - Dental exam: goes regularly - Eye exam: goes regularly - Immunizations - HPV: NA - Influenza: 05/18/2018 - Prevnar: NA - Pneumovax: 05/18/2018 - TdaP/Td: requested records - Zoster: NA -Advanced Directive: discussed Class 1 obesity due to exces s calories without serious comorbidity with body mass index (BMI) of 31.0 to 31.9 in adult 05/18/2018 Acne vulgaris Overview (05/18/2018): hormonal Osteopenia Back pain Anxiety and depression Immunizations Immunization Administration Dates Next Due INFLUENZA VACCINE, QUADR. (F LUZONE; FLULAVAL; FLUARIX; AFLURIA QUADRIVALENT; 6MO+), 0.5 ML (IIV4) 05/18/2018 PNEUMOCOCCAL PPSV23 05/18/2018 Family History Medical History Relation Name Comments Other - Hematologic Daughter 1 herditar y spleen disorder Cancer - Lung Mother smoker Other - Hematologic Mother heredita ry sleep disorder Diabetes - Type 2 Paternal Grandmother Other Sister MVC Relation Name Status Comments Daughter 1 Alive Daughter 2 Alive Father Maternal Grandfather Maternal Grandmother Mother Paternal Grandfather Paternal Grandmother Alive Sister Social History Tobacco Use Types Packs/Day Years Used Date Smoking Tobacco: Every Day Cigarettes 1 27.3 Started: 1997 Smokeless Tobacco: Never Tobacco Cessation:Ready to Q uit: Yes; Counseling Given: Yes Comments:smokes 5-6 cigarettes a day Alcohol Use Standard Drinks/Week Comments No 0 (1 standard drink = 0.6 oz pur e alcohol) Comments No Sex and Gender Information Value Date Recorded Sex Assigned at Not on file Legal Sex Female 3:26 PM CDT Gender Identity Not on file Sexual Orientation Not on file Last Filed Vital Signs Vital Sign Reading Time Taken Comments Blood Pressure 124/82 11/09/2018 9:04 AM CDT Pulse 74 11/09/2018 9:04 AM CDT Temperature 36.7 C (98 F) 11/09/2018 9:04 AM CDT Respiratory Rate 16 02/15/2013 12:27 PM CDT Oxygen Saturation 100% 02/15/2013 12:27 PM CDT Inhaled Oxygen Concentration - - Weight 85.7 kg (189 lb) 11/09/2018 9:04 AM CDT Height 162.6 cm (5' 4 ) 09/12/2018 9:34 AM GOSPEL WORKER Body Mass Index 32.44 09/12/2018 9:34 AM GOSPEL WORKER Plan of Treatment Health Maintenance Due Date Last Done Comments LIPID TESTING 1982 MAMMOGRAM 1982 HIB VACCINE (1 of 1 - Risk 1 -dose series) 07/08/1983 MENINGOCOCCAL GROUPS A/C/Y/W VACCINE (1 - Risk 2-dose series) 1984 MENINGOCOCCAL (Group B) VACC INE SHARED DECISION-MAKING (1 of 5 - Increased Risk) 1992 HIV SCREENING 1997 HEPATITIS C SCREENING 04/02/2000 DTAP/TDAP/TD VACCINES (1 - Tdap) 2001 HEPATITIS B VACCINE (1 of 3 - 19+ 3-dose series) 2001 PNEUMOCOCCAL VACCINE (2 of 2 - PCV) 05/18/2019 05/18/2018 PAP with HPV 09/12/2023 09/12/2018 COVID-19 VACCINE (1 - 2023-2 5 season) 2024 DEPRESSION SCREENING 08/29/2024 INFLUENZA VACCINE (Season Ended) 2025 05/18/20 18 ZOSTER VACCINE (1 of 2) 2032 HPV VACCINE Aged Out No longer eligi ble based on patient's age to complete this topic Procedures Procedure Name Priority Date/Time Associated Diagnosis Comments HPV DETECTION HIGH RISK ANIBAL Routine 09/12/2018 11:49 AM GOSPEL WORKER Dysmenorrhea from Last 3 Months or Most Recently Relevant to Health Maintenance Results * HPV DETECTION HIGH RISK ANIBAL (09/12/2018 11:49 AM GOSPEL WORKER) High Risk Human Papilloma Result Not Detected Not Detected 09/14/2018 4:14 PM GOSPEL WORKER [facility] High Risk Human Papilloma Interp 09/14/2018 4:14 PM GOSPEL WORKER [facility] Comment:High Risk Human Edgar lloma Virus was Not Detected. Pathology/Cytolo gy MISCELLANEOUS SAMPLES / Unknown 09/12/2018 11:49 AM GOSPEL WORKER 09/13/2018 11:49 AM GOSPEL WORKER Narrative [facility] - 09/14/2018 4:14 PM GOSPEL WORKER Nucleic acid isolated from the specimen was analyzed with a nucleic acid amplification test (FDA approved Gen-Probe HPV Assay) to detect high risk human papilloma virus (Types: 16, 18, 31, 33, 35, 39, 45, 51, 52, 56, 58, 59, 66, and 68). The reference range is Not Detected . Comment: These test results should not be used as the sole basis for clinical assessment and treatment of patients. These results should always be correlated with other available data (cytology, histology, and clinical information). Boni Prado MD LAB - MICROBIOLOGY ORDERABLES Final Result [facility] [address] [phone] from Last 3 Months or Most Recently Relevant to Health Maintenance Insurance [facility] Care Teams Metal Fabricating Shop Helper Relationship Specialty Start Date End Date Unknown, Provider PCP - General 06/15/24
--- OUTSIDE RECORDS SUMMARY | 2024-12-20 09:23 | XMS_ITS | Referral Summary ---
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 Mitral valve prolapse 10/23/2013 Social History Tobacco Use Types Packs/Day Years Used Date Smoking Tobacco: Never Assessed Comments No Sex and Gender Information Value Date Recorded Sex Assigned at Not on file Legal Sex Female 7:10 PM SOLAR PHOTOVOLTAIC SYSTEMS ENGINEER Gender Identity Not on file Sexual Orientation Not on file Last Filed Vital Signs Vital Sign Reading Time Taken Comments Blood Pressure 132/78 07/03/2014 8:47 AM SOLAR PHOTOVOLTAIC SYSTEMS ENGINEER Pulse 96 05/24/2014 4:35 PM CDT Temperature - - Respiratory Rate - - Oxygen Saturation 97% 05/24/2014 4:35 PM CDT Inhaled Oxygen Concentration - - Weight 88 kg (194 lb 0.1 oz) 07/03/2014 8:47 AM SOLAR PHOTOVOLTAIC SYSTEMS ENGINEER Height 162.6 cm (5' 4 ) 05/20/2014 10:51 PM CDT Body Mass Index 33.3 05/20/2014 10:51 PM CDT Plan of Treatment Not on file Procedures Procedure Name Priority Date/Time Associated Diagnosis Comments SCREENING MAMMOGRAM BILATERAL W VIPUL Schedule Routine, Read Routine (OP Routine) 01/13/2023 8:37 AM CDT Screening mammogram, encounter for from Last 3 Months or Most Recently Relevant to Health Maintenance Results * Screening Mammogram Bilateral W Vipul (01/13/2023 8:37 AM CDT) Anatomical Region Laterality Modality Breast Bilateral Mammography 01/13/2023 9:05 AM CDT Impressions 01/13/2023 9:05 AM CDT No evidence of malignancy in either breast. FINAL ASSESSMENT: BI-RADS Category 1: Negative. RECOMMENDATION: Recommend return for annual screening mammogram in 12 months. Electronically signed by: Ayleen Mcarthur M.D. Narrative 01/13/2023 9:05 AM CDT EXAMINATION: BILATERAL SCREENING MAMMOGRAM COMPARISON: Baseline TECHNIQUE: Full-field 2D and digital breast tomosynthesis (DBT) images were obtained. CAD was utilized. BREAST PARENCHYMAL COMPOSITION: There are scattered areas of fibroglandular density. FINDINGS: There is no suspicious mass, calcification, or distortion in either breast. us Self Screening Mammogram IMG MAMMO PROCEDURES Fi nal Result from Last 3 Months or Most Recently Relevant to Health Maintenance Insurance .[address] [place] [address] Care Teams Supervisor Continuous Weld Pipe Mill Relationship Specialty Start Date End Date Jason Bay NP [address] [place] [address] PCP - General Pain Management 01/05/23
--- OUTSIDE RECORDS SUMMARY | 2024-12-20 09:23 | XMS_ITS | Clinical Summary ---
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 Mitral valve prolapse 10/23/2013 Surgical History Surgery Date Site/Laterality Comments [place] SPLENECTOMY TOTAL SEPARAT E PROCEDURE Splenectomy - (Added by TW Conv) ANKLE SURGERY Ankle Surgery - (Added by TW Conv) Medical History Medical History Date Comments Hereditary spherocytosis Spheroc ytosis - (Added by TW Conv) Personal history of other me ntal and behavioral disorders History of depression - (Add ed by TW Conv) Other specified re lated conditions, unspecified trimester Vaginal discharge in - (Added by TW Conv) Personal history of other sp ecified conditions History of nausea and vomiti ng - (Added by TW Conv) Personal history of other di seases of the respiratory system Personal history of asthma - (Added by TW Conv) Smoking Quit in 2020 Family History Medical History Relation Name Comments Lung cancer Mother Family history of lung cancer - (Added by TW Conv) Breast cancer Neg Hx Endometrial cancer Neg Hx Ovarian cancer Neg Hx Thyroid cancer Neg Hx Relation Name Status Comments Mother Social History Tobacco Use Types Packs/Day Years Used Date Smoking Tobacco: Never Assessed Comments No Sex and Gender Information Value Date Recorded Sex Assigned at Not on file Legal Sex Female 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 Gender Identity Not on file Sexual Orientation Not on file Obstetrics History Para Term AB IAB SAB Ectopic Multiple Livin g Live Births 2 2 2 Date Outcome GA Total Labor Labor/2nd/3rd Weight Sex Type Anes PTL Arlen A1 A5 Name Clin Term Term Last Filed Vital Signs Vital Sign Reading Time Taken Comments Blood Pressure 132/78 07/03/2014 8:47 AM MALLET AND DIE CUTTER Pulse 96 05/24/2014 4:35 PM CDT Temperature - - Respiratory Rate - - Oxygen Saturation 97% 05/24/2014 4:35 PM CDT Inhaled Oxygen Concentration - - Weight 88 kg (194 lb 0.1 oz) 07/03/2014 8:47 AM MALLET AND DIE CUTTER Height 162.6 cm (5' 4 ) 05/20/2014 10:51 PM CDT Body Mass Index 33.3 05/20/2014 10:51 PM CDT Plan of Treatment Health Maintenance Due Date Last Done Comments Cervical Cancer Screening 1982 Depression Screening 1982 Hepatitis C Screening 1982 Varicella Vaccines (1 of 2 - 13+ 2-dose series) 1995 Hepatitis B Screening 2000 Regular Well Visit/Exam 18-64 2000 Breast Cancer Screening-Mammogram 01/14/2024 023 DTaP/Tdap/Td Vaccine (2 - Td or Tdap) 05/23/2024 05/23/2014 Influenza Vaccine (Season Ended) 2025 05/18/20 18 Pneumococcal vaccine <65 Aged Out 05/18/2018 No longer eligible based on patient's age to complete this topic HPV Vaccines Aged Out No longer eligi ble based [...] mammogram in 12 months. Electronically signed by: Araseli Merritt 01/13/2023 9:05 AM CDT EXAMINATION: BILATERAL SCREENING [...] Most Recently Relevant to Health Maintenance Insurance Care Teams Exchange Consultant Relationship Specialty Start Date End Date Jason Bay NP [address] [place], [place] [id number] PCP - General Pain Management 01/05/23
[2024-12-20 09:24] LABS: EDUAAPPEAR Clear; EDUABILI Negative (Negative); EDUABLOOD Negative (Negative); EDUACOLOR1 Dark; EDUAGLUCOSE Negative (Negative); EDUAKETONE Negative (Negative); EDUALEUKO Negative (Negative); EDUANITRATE Negative (Negative); EDUAPROTEIN Negative (Negative); EDUASPGRAVITY 1.015; EDUAUROBILI 0.2
--- OUTSIDE RECORDS SUMMARY | 2024-12-20 09:31 | XMS_ITS | Continuity of Care Document ---
Author Organization [facility] Address [address] [place] [address] [place] [address] Phone Care Team Providers Care Food Service Utility Worker Name Role Phone Dudley Yeung MD Unavailable [...] Diagnoses Date Provider Providers Copied on Encounter [facility], [address], [place], [place], [address], tel:[phone] [facility] No Information 8 Gamal Buckner. [address], [place], [place], [address] , [place]. tel:[phone] Referring Provider: Chuck David [address], [place], [place], [address]. tel:[phone] PREV VISIT, EST, AGE 18-39 [facility], [address], [place], [place], [address], [place] tel:[phone] [facility] PHysical (chief complaint) Encounter for general adult medical exam w abnormal findingsHyperlipid emiaLiver diseaseChronic pain syndrome 8 Gamal Buckner. [address], [place], [place], [address] , [place]. tel:[phone] Referring Provider: Chuck David [address], [place], [place], [address]. tel:[phone] OFFICE/OUTPA TIENT VISIT, [facility], [address], [place], [place], [address], [place] tel:[phone] [facility] back pain1 (chief complaint)t obacco1 (chief complaint)e ar pain1 (chief complaint)L iver disease1 (chief complaint) Other hyperlipidemiaOtal david, right earLiver diseaseOther spondylosis, cervicothoracic region 5 Gamal Buckner. [address], [place], [place], [address] , [place]. tel:[phone] Referring Provider: Chuck David [address], [place], [place], [address]. tel:[phone] OFFICE/OUTPA TIENT VISIT, [facility], [address], [place], [place], [address], [place] tel:[phone] [facility] back pain (chief complaint)H TN (chief complaint)t obacco (chief complaint) Dietary surveillance and counselingBack painOpioid type dependence, unspecified useUnspecified essential hypertensionTobacc o abuse 5 Gamal Buckner. [address], [place], [place], [address] , [place]. tel:[phone] Referring Provider: Dudley Yeung, [address], [place], [place], [address]. tel:[phone] OFFICE/OUTPA TIENT VISIT, [facility], [address], [place], [place], [address], [place] tel:[phone] [facility] back pain (chief complaint) Dietary surveillance and counselingBack painUnspecified essential hypertensionUnspec ified chronic liver disease without mention of alcohol 5 Gamal Buckner. [address], [place], [place], [address] , [place]. tel:[phone] Referring Provider: Chuck David [address], [place], [place], [address]. tel:[phone] OFFICE/OUTPA TIENT VISIT, [facility], [address], [place], [place], [address], [place] tel:[phone] [facility] URI (chief complaint)b ack pain (chief complaint) Dietary surveillance and counselingAllergic rhinitisUpper respiratory diseaseLumbago 5 Gamal Buckner. [address], [place], [place], [address] , [place]. tel:[phone] Referring Provider: Chuck David [address], [place], [place], [address]. tel:[phone] OFFICE/OUTPA TIENT VISIT, [facility], [address], [place], [place], [address], [place] tel:[phone] [facility] LFT (chief complaint)H LP (chief complaint)b ack pain (chief complaint)H TN (chief complaint) Dietary surveillance and counselingHyperten geronimo, UnspecifiedOther and unspecified hyperlipidemiaUnsp ecified chronic liver disease without mention of alcoholLumbago Nov- 5 Gamal Mckeon [address], [place], [place], [address] , . tel:[phone] Referring Provider: Chuck [facility] [place], [place], [address]. tel:[phone] OFFICE/OUTPA TIENT VISIT, [facility], [address], [place], [place], [address], [place] tel:[phone] [facility] back pain (chief complaint)d epression (chief complaint) LumbagoDietary surveillance and counselingDepressi onOpioid type dependence, unspecified use 5 Gamal Mckeon [address], [place], [place], [address] , [place]. tel:[phone] Referring Provider: Chuck David [address], [place], [place], [address]. tel:[phone] OFFICE/OUTPA TIENT VISIT, [facility], [address] [place], [address], [place] tel:[phone] depression (chief complaint)b ack pain (chief complaint)L FT (chief complaint) DepressionLumbagoU nspecified chronic liver disease without mention of alcoholDietary surveillance and counseling 4 Gamal Mckeon [address], [place], [place], [address] , [place]. tel:[phone] Referring Provider: Chuck David [address], [place], [place], [address]. tel:[phone] OFFICE/OUTPA TIENT VISIT, [facility], [address], [place], [place], [address], [place] tel:[phone] [facility] HLP (chief complaint)L FT (chief complaint)b ack pain (chief complaint)d epression (chief complaint) ObesityOther and unspecified hyperlipidemiaUnsp ecified chronic liver disease without mention of alcoholLumbago 4 Gamal Buckner. [address], [place], [place], [address] , [place]. tel:[phone] Referring Provider: Chuck David [address], [place], [place], [address]. tel:[phone] OFFICE/OUTPA TIENT VISIT, EST [facility], [address], [place], [place], [address], [place] tel:[phone] [facility] LFT (chief complaint)H LP (chief complaint)b ack pain (chief complaint)a drenal nodule (chief complaint) Other and unspecified hyperlipidemiaUnsp ecified chronic liver disease without mention of alcoholObesityLumb ago 4 Gamal Mckeon [address], [place], [place], [address] , [place]. tel:[phone] Referring Provider: Chuck David [address], [place], [place], [address]. tel:[phone] OFFICE/OUTPA TIENT VISIT, EST [facility], [address], [place], [place], [address], [place] tel:[phone] [facility] adrenal nodule (chief complaint)a cne (chief complaint)b ack pain (chief complaint) Dietary surveillance and counselingOther specified disorders of adrenal glandsLumbagoOther acne 4 Gamal Mckeon [address], [place], [place], [address] , [place]. tel:[phone] Referring Provider: Chuck David [address], [place], [place], [address]. tel:[phone] PREV VISIT, EST, AGE 18-39 [facility], [address], [place], [place], [address], [place] tel:[phone] [facility] Medicine Physical (chief complaint) Dietary surveillance and counselingRoutine Medical ExamRoutine Medical Exam 4 Yeung Dudley. [address], [place], [place], [address] , [place]. tel:[phone] Referring Provider: hCuck David [address], [place], [place], [address]. tel:[phone] OFFICE/OUTPA TIENT VISIT, [facility], [address], [place], [place], [address], [place] tel:[phone] [facility] back pain (chief complaint)a dernal mass (chief complaint) LumbagoOther specified disorders of adrenal glands 4 Gamal Buckner. [address], [place], [place], [address] , [place]. tel:[phone] Referring Provider: Chuck David [address], [place], [place], [address]. tel:[phone] OFFICE/OUTPA TIENT VISIT, [facility], [address], [place], [place], [address], [place] tel:[phone] back pain (chief complaint) LumbagoDietary surveillance and counseling 3 Gamal Buckner. [address], [place], [place], [address] , [place]. tel:[phone] Referring Provider: Chuck David [address], [place], [place], [address]. tel:[phone] OFFICE/OUTPA TIENT VISIT, [facility], [address], [place], [place], [address], [place] tel:[phone] [facility] back pain (chief complaint)a drenal (chief complaint) Dietary surveillance and counselingLumbagoH ypertension, UnspecifiedOther specified disorders of adrenal glands 3 Gamal Buckner. [address], [place], [place], [address] , [place]. tel:[phone] Referring Provider: Chuck David [address], [place], [place], [address]. tel:[phone] OFFICE/OUTPA TIENT VISIT, EST [facility], [address], [place], [place], [address], [place] tel:[phone] [facility] Medicine back pain (chief complaint)H TN (chief complaint)H LP (chief complaint) Dietary surveillance and counselingLumbagoH ypertension, UnspecifiedOther and unspecified hyperlipidemia 3 Gamal Buckner. [address], [place], [place], [address] , [place]. [phone] Referring Provider: Chuck [facility], [place], [place], [address]. tel:[phone] PREV VISIT, EST, AGE 18-39 [facility], [address], [place], [place], [address], [place] tel:[phone] Physical (chief complaint) Routine Medical ExamHypertension, UnspecifiedLumbago Major depressive affective disorder, single episode, mild degreeRoutine Medical Exam 0 3 Gamal Buckner. [address], [place], [place], [address] , [place]. [phone] Referring Provider: Chuck David [facility] A, [place], [place], [address]. tel:[phone] Family History Family Member Type Diagnosis Age At Onset Father Problem (finding) Alcoholism Sister Problem (finding) MVA Mother Problem (finding) Cancer - lung [place] Payers Payer name Insurance type Covered libertarian ID Authoriza tion(s) No Information Social History [...] Related t o Dietary surveillance and counseling Physical activity counseling Rel ated to Dietary surveillance counseling Decrease caloric intake Related to Dietary surveillance counseling Physical activity counseling Rel ated to Dietary surveillance counseling Decrease caloric intake Related to Dietary surveillance counseling Physical activity counseling Rel ated to Dietary surveillance counseling Decrease caloric intake Related to Dietary surveillance counseling Dietary counseling Related to Ob esity unspecified, [...]
--- OUTSIDE RECORDS SUMMARY | 2024-12-20 09:31 | XMS_ITS | CONTINUITY OF CARE DOCUMENT ---
Author Name camille obrien Address Unknown Organization [facility] Address [address] [place] [address] [address] [place] [address] Phone [phone] Care Team Providers Care Commis Chef Name Role Phone mireyacamille chou Unavailable Unavailable INSURANCE PROVIDERS Payer name Policy type / Coverage type [place] red constitution party ID [id number] insurance [email or web address] [id number]
--- OUTSIDE RECORDS SUMMARY | 2024-12-20 09:31 | XMS_ITS | Clinical Summary ---
Author Organization [facility] Address [address] [address] Phone Care Team Providers Care Electronic Musical Instrument Repairer Name Role Phone Unavailable Primary Care Provider Unavailabl e Encounters Date Type Department Care Team Description 12/18/2024 Telephone [facility] [address] [place] [address] Ifrah Solorzano, UTILITY TECH, RN COMMUNITY from Last 3 Months Social History Tobacco Use Types Packs/Day Years Used Date Smoking Tobacco: Never Assessed Comments Unknown Sex and Gender Information Value Date Recorded Sex Assigned at Not on file Legal Sex Female 2:55 PM CDT Gender Identity Not on file Sexual Orientation Not on file Plan of Treatment Upcoming Encounters Date Type Department Care Team (Late st Contact Info) Description 01/04/2025 3:30 PM CDT Office Visit [facility] [address] [place] [address] Ifrah Solorzano APRN, RN COMMUNITY [address] [place] [address] Health Maintenance Due Date Last Done Comments Hepatitis C Virus (HCV) Screening 1982 Mammogram 1982 TdaP Immunization 1982 Hepatitis B Immunization (1 of 3 - 19+ 3-dose series) 2001 Pap Smear 2003 Cervical Cancer Screening (CCS) 2012 HPV/Cotest 2012 Discussion re Starting/Frequ ency of Mammograms 2022 SARS-COV-2 Immunization (1 - 2024- season) 2024 Influenza Immunization (Seas on Ended) 2025 Respiratory Syncytial Virus (RSV) Immunization (Adult) (1 - 1-dose 75+ series) 2057 Meningococcal Immunization (ACWY) Aged Out No longer eligible based on patient's age to complete this topic Pneumococcal Immunization Combined Aged Out No longer eligible based on patient's age to complete this topic Rotavirus Immunization Aged Out No lo nger eligible based on patient's age to complete this topic Insurance
--- NOTE | 2024-12-20 09:41 | ED_ITS ---
HPI - Female Genitourinary General Chief complaint: Urogenital-Female Stated complaint: right side pain Time Seen by Provider: 12/20/24 09:30 Source: patient, RN notes reviewed and old records reviewed Mode of arrival: ambulatory Limitations: no limitations History of Present Illness HPI Narrative: 44 year old female who presents to [facility] care with complaints of right flank pain which started today. 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 Patient reports that she has noted some urinary frequency for 4-5 days and has been tired a few days. Patient reports no burning with urination, has had episodes where she feels like he needs to urinate and noting comes out. Patient reports has had past UTI's but not for over a year and denies any history of kidney stones.Patient reports that pain is non radiating and rates it 4/10 and has taken Ibuprofen MD elicited complaint: flank pain (right) and other (urinary frequency) Pertinent past history: other (UTI) Onset (ago): day(s) (this morning) Location of symptoms: flank (right) Severity scale (1-10): 4 Quality of pain: aching Vaginal discharge: none Vaginal bleeding: none Treatment prior to arrival: NSAIDs Related Data Home Medications ?Medication ?Instructions ?Recorded ?Confirmed ?Last Taken ?Type fluoxetine 20 mg capsule (Prozac) 20 mg PO DAILY 02/08/23 Unknown History Allergies Allergy/AdvReac Type Severity Reaction Status Date / Time No Known Allergies Allergy Verified 12/20/24 09:11 Review of Systems Review of Systems: CONSTITUTIONAL: Denies fever, chills, or sweats. CARDIOVASCULAR: Denies chest pain, palpitations, or edema. RESPIRATORY: Denies cough or dyspnea. GASTROINTESTINAL: Denies abdominal pain, nausea, vomiting, or diarrhea. GENITOURINARY: Reports no dysuria,reports frequency, urgency. right flank pain no hematuria. SKIN: Denies rash or itching. MUSCULOSKELETAL: Denies back pain or myalgia. Reports right CVA tenderness NEUROLOGIC: Denies headache All systems reviewed & are unremarkable except as noted in HPI and below PMFSH Past Medical History Medical History Osteopenia Depression Spherocytosis Weight gain Ganglion cyst of right foot Patient denies significant medical history Surgical History Surgical History History of ankle surgery Right ankle, 2002 History of splenectomy Family History Family History Mother Family history of mental disorder Family history of spherocytosis Family history of lung cancer Father Depression Grandparent Diabetes mellitus Other Arthritis Social History Social History Smoking packs per day: 1 Smoking cigarettes per day: 20.0 Years smoked: 15 Smoking pack-years: 15.00 Smoking status: Current every day smoker Tobacco type: e-cigarettes/vaping Alcohol intake: never Alcohol use details: Occasional Substance use: unknown Lack of Transportation: No Lack of Food: Never True Current Housing: I Have Housing Concerned About Future Housing: No Difficulty Paying Gas/Electric Bills: No Difficulty Paying for Meds: No Currently Unemployed: No Education: Bachelor's Degree Difficulty w/ Childcare or Family Care: No Occupation/Education: unemployed Gender identity (if verbalized by the patient): Female Comments At time of signature, agree with nursing past medical, surgical, social and family history. There is no relevant family history pertinent to the presenting complaint Exam Narrative: GENERAL: Well-appearing, well-nourished, and in no acute distress. HEAD: Normocephalic, atraumatic. NECK: Supple. no lymphadenopathy CHEST: Clear to auscultation. No respiratory distress. SAO2 99% on room air HEART: Regular rate and rhythm. No murmur heard. Normal peripheral pulses. ABDOMEN: Soft, nontender, nondistended, normal active bowel sounds. right CVA tenderness urinary frequency EXTREMITIES: Normal range of motion. No edema. SKIN: Warm, dry, no rash. NEURO: No focal deficits. Alert and oriented x3. Course Course Emergency Course: Patient is aware of diagnosis, understands and agrees to treatment plan.? Anticipatory guidance given.? Patient agrees to follow-up as directed and is aware of reasons to seek care at the emergency department. Portions of this record may have been created with voice recognition software Level of Care: Express Care Visit Vital Signs Vital signs: Vital Signs Temperature 37.1 C 12/20/24 09:02 Pulse Rate 74 12/20/24 09:02 Respiratory Rate 20 12/20/24 09:02 Blood Pressure 117/62 12/20/24 09:02 Pulse Oximetry 99 12/20/24 09:02 Oxygen Delivery Room Air 12/20/24 09:02 Temperature 37.1 C 12/20/24 09:02 Pulse Rate 74 12/20/24 09:02 Respiratory Rate 20 12/20/24 09:02 Blood Pressure 117/62 12/20/24 09:02 Pulse Oximetry 99 12/20/24 09:02 Oxygen Delivery Room Air 12/20/24 09:02 reviewed MDM - Female Genitourinary MDM Narrative Medical decision making narrative: Exam findings and UA show no acute concerns or changes; patient is non-toxic appearing and is in no distress.? Patient is appropriate for outpatient treatment and follow-up. Differential Diagnosis Differential diagnosis: Likely urinary tract infection, cystitis and other (right flank pain, urinary frequency) Medical Records Attestation: I reviewed the patient's medical records. Lab Data Attestation: I reviewed the patient's lab results. Lab results narrative: see urine dip culture sent No Leukocytes or blood noted in urine Labs: Lab Results 12/20/24 Range/Units 09:14 POC Urine Color Dark POC Urine Clarity Clear POC Urine pH 7.0 POC Ur Specif [place] 1.015 POC Urine Protein Negative (Negative) POC Ur Glucose (UA) Negative (Negative) POC Urine Ketones Negative (Negative) POC Urine Blood Negative (Negative) POC Urine Nitrite Negative (Negative) POC Urine Bilirubin Negative (Negative) POC Urine Urobilinogen 0.2 POC U Leukocyte Esteras Negative (Negative) Critical Care Time Critical Care Time Critical Care Time: No Discharge Plan Discharge Clinical Impression: Urinary tract infection symptoms, Right flank pain Patient Disposition: Home Condition: Stable Instructions: Antibiotic Form, Urinary Tract Infection in Women (DC), Flank Pain (ED) Additional Instructions: Increase fluids especially cranberry juice and water Avoid caffeine and carbonated beverages Antibiotic as directed Tylenol/ibuprofen for pain or fever Follow-up with her primary care provider if further problems or concerns Recheck if you have fever over 101, nausea and vomiting. If any increased pain or changes in condition go directly to the emergency room further evaluation If your symptoms persist, change or worsen significantly before you can contact your personal physician then please, without delay, go to the emergency department for further evaluation. Follow-up with PCP in 7-10 days or sooner if needed Patient Language: Turkmen Prescriptions: New nitrofurantoin monohyd/m-cryst [Macrobid] 100 mg capsule 100 mg PO Q12H 7 Days Qty: 14 0RF Rx Instructions: must administer with a meal/food No Action fluoxetine [Prozac] 20 mg capsule 20 mg PO DAILY fluticasone propionate [Flonase Allergy Relief] 50 mcg/actuation spray,suspension 2 spray intranasal DAILY Qty: 18 3RF Rx Instructions: administer into each nostril Follow-up/Referrals: PHYSICIAN,AVIONICS INTEGRATION ENGINEER [Primary Care Provider] - Stand Alone Forms: Work/School Release IP Time of Disposition: 09:50 Quality Tarah Coma Scale Eyes: Open Verbal: Oriented and Alert Motor: Follows Commands [place] Coma Total Score: 15
== END 2024-12-20 09:55 | disposition home or self-care (01) ==
PROVIDERS: Emergency Provider Registered Nurse
DX: R10.9 Unspecified abdominal pain (principal); R35.0 Frequency of micturition; F17.290 Nicotine dependence, other tobacco product, uncomplicated; M85.80 Other specified disorders of bone density and structure, unspecified site
CPT/HCPCS: 81003; 87086; 99213; G0463